=== PATIENT | female | born 1940 | race Caucasian/White ===

== ENCOUNTER 2016-10-09 09:11 | Inpatient (IN) | payer MEDICARE, BC ==
--- NOTE | ~2016-10-09 | DS ---
Discharge Summary [facility] [address] [place]. [address] NAME: OZIEL CHAUDHRY : 38 STATUS : DIS IN PAT#: [id number] AGE: 76 ADM/REG DATE : 10/11/16 MR#: [id number] REPORT SERV DATE: 10/14/16 DICTATED BY: JR. NEGRETE WILLIAM JOHN DATE: 10/14/16 REPORT STATUS : Draft TRANSCRIBED BY: MODL DATE: 10/14/16 ADMISSION DATE: 10/11/2016 DISCHARGE DATE: 10/14/2016 DISCHARGE DIAGNOSES: Include: 1. Dysphagia with normal structure per ENT and normal neuromuscular control per Speech and Language Pathology. 2. Viral upper respiratory infection. 3. Hypokalemia. 4. Essential hypertension. 5. Coronary artery disease with stent. 6. Rash, which has resolved. 7. Obesity with body mass index of 34.4. OPERATIONS, PROCEDURES, AND TREATMENTS: Include: 1. Chest x-ray done 10/09/2016 which showed clear lungs with mild cardiomegaly. 2. Swallow evaluation which showed some vallecular pooling and vallecular and piriformis residue with pudding by teaspoon with vallecular pooling that returns to the mouth. The patient was unable to produce a swallow initially. 3. Repeat evaluation by Speech and Language Pathology showed the patient was able to swallow part of the bolus of pudding thick liquids and the rest of the bolus had to be spit out. The patient was safe to swallow but appeared to be afraid of "choking" making it difficult to eat a whole lot. 4. Ear, Nose, and Throat consultation by Dr. Li, who felt she had an acute upper respiratory infection suspected to be viral, also with odynophagia recommended. Speech evaluation as above. DISCHARGE MEDICATIONS: Included: 1. Aspirin 81 mg orally daily. 2. Plavix 75 mg orally daily. 3. Imdur 60 mg orally daily. 4. Cozaar 50 mg orally twice a day. 5. Bystolic 5 mg orally at bedtime. 6. Potassium 10 mEq three times a day. 7. Tramadol 50 mg twice a day. 8. Stool softener. 9. Nitroglycerin 0.4 mg sublingually as needed. HOSPITAL COURSE: The patient is a 76-year-old white female, presented to the emergency room on 10/09/2016 because of an inability to swallow. She reported that the symptoms had started the prior day she was having upper respiratory infection for five to six days. She had a very similar episode in June, by which time, she had an extensive workup for neurologic or structural causes, all of which was negative at that time. The patient's dysphagia spontaneously resolved in June. For exact details of the admission history, physical, and presenting data, please see Dr. Levine's admission history and physical. Discharge Summary [address] [address] NAME: OZIEL CHAUDHRY : 39 STATUS : DIS IN PAT#: [id number] AGE: 76 ADM/REG DATE : 10/11/16 MR#: [id number] REPORT SERV DATE: 10/14/16 DICTATED BY: JR. NEGRETE WILLIAM JOHN DATE: 10/14/16 REPORT STATUS : Draft TRANSCRIBED BY: NICOLE DATE: 10/14/16 The patient was admitted to the Clinical Decision Unit initially. She was seen in consultation by ENT who performed an endoscopy and felt there was no structural cause to her trouble with swallowing. Recommended speech eval for neuromuscular causes. The patient was subsequently evaluated by speech and language pathology. Initially, she was unwilling or unable to swallow any of the barium. Reevaluation showed that she was able to swallow some of the barium with normal neuromuscular control but a fear of "choking." The patient was maintained on IV fluids and blood pressure medications were changed to IV formulation. I discussed with the patient the need to establish enteric access on 10/13/2016. We had planned to put a Dobhoff tube under radiology guidance with subsequent plan for PEG tube should the patient continue to be unable to swallow. By 10/14/2016 when I entered the room, the patient was eating spontaneously without choking and without difficulty and wanted to go home. She did not have a Dobhoff tube in place. We discussed possible etiologies. The patient feels and I agree that this is an anxiety issue. She is not anxious at baseline. However, when she gets sick, she has a fear of coughing and therefore is fearful of eating. She felt comfortable with discharge at this time. Regarding the patient's upper respiratory infection, she was placed initially on Rocephin by Dr. Levine, developed a rash. Antibiotics were discontinued. The rash resolved. This seems likely to have been a viral upper respiratory infection as all symptoms are currently resolved with no further antibiotics. The remainder of the patient's health problems remained stable and were not addressed. The patient would be discharged home and will follow up with Dr. Elder. I would recommend at this time a soft diet with supplements of Ensure shakes and advancing the diet as tolerated. The patient's family are all comfortable. She will be discharged home. DIET: Soft. ACTIVITY: As tolerated. Follow up with Dr. Elder. This discharge took 33 minutes for patient encounter, coordination of care, and documentation. WJF/MODL Alex Negrete Jr, MD / [id number] CC: Alex Negrete Jr, MD Renee Harless, M.D.
--- NOTE | ~2016-10-09 | HP ---
History And Physical [place] [address] [facility] [place]. [address] NAME: OZIEL CHAUDHRY : 38 STATUS : REG ER PAT#: [id number] AGE: 76 ADM/REG DATE : 10/09/16 MR#: [id number] REPORT SERV DATE: 10/09/16 DICTATED BY: PEDRO FANG DATE: 10/09/16 REPORT STATUS : Draft TRANSCRIBED BY: MODL DATE: 10/09/16 DATE OF ADMISSION: 10/09/2016 HISTORY OF PRESENT ILLNESS: The patient is a very pleasant 76-year-old female, who presented to [facility] because of dysphagia and inability to swallow. She reported that the symptoms started yesterday and she said that she is having upper respiratory infection for approximately five to six days and last time in end of June, she had the same symptoms of upper respiratory infection and she has a postnasal drip, and she had similar symptoms, and she was hospitalized at this hospital. She spent there six days. The patient was unable to eat at diet. At that time, she under underwent upper GI endoscopy, EGD, and she was found to have esophagitis, but no evidence of any esophageal stricture. She had also MRI and extensive neurological workup on multiple swallowing study. Everything came back negative. It looks like these abnormal swallowing was related to upper respiratory infection and postnasal drip. The patient said that she has a fear of swallowing and they gave her water to swallow in the emergency room. She was unable to swallow it, was having some spasms. The patient denies any chest pain, no shortness of breath. No abdominal pain. No fever. No rash. No headaches. REVIEW OF SYSTEMS: All fourteen-point review of systems done and negative except what is stated in the history of present illness. PAST MEDICAL HISTORY: Known for hypertension, history of coronary artery disease with a history of stent placement, and obesity. PAST SURGICAL HISTORY: Includes hysterectomy, cholecystectomy, knee and back surgeries. SOCIAL HISTORY: Nonsmoker, nondrinker. No recreational drug use. . Has at the bedside. ALLERGIES: SHE IS ALLERGIC TO NONSTEROIDAL ANTIINFLAMMATORIES, PENICILLIN, MORPHINE, HYDROCODONE, CIPROFLOXACIN, LEVAQUIN, ZOLEDRONIC ACID. HAD ADVERSE REACTION TO FLU SHOT. FAMILY HISTORY: Mother was a long liver, of old age. Father had leukemia and in his 40s. HOME MEDICATIONS: Include Tylenol 1000 mg a day, Plavix 75 mg daily, aspirin 81 mg daily, doxycycline 100 mg p.o. b.i.d., was given for 10 days by [facility], isosorbide mononitrate 60 mg a day, losartan 50 mg p.o. twice a day, Bystolic 5 mg daily, nitroglycerin 0.4 as needed for chest pain, potassium chloride 10 mg p.o. t.i.d., tramadol 50 mg b.i.d., Ultram 50 mg daily p.r.n. for pain, and stool softener daily. PHYSICAL EXAMINATION: GENERAL: Well-nourished, well-developed female, not in acute distress. Resting quietly. VITAL SIGNS: Blood pressure 146/67, temperature 98.7, heart rate 72, respiratory rate 20, oxygen saturation 96% on room air. History And Physical [address] [address] NAME: OZIEL CHAUDHRY : 38 STATUS : REG ER PAT#: [id number] AGE: 76 ADM/REG DATE : 10/09/16 MR#: [id number] REPORT SERV DATE: 10/09/16 DICTATED BY: PEDRO FANG DATE: 10/09/16 REPORT STATUS : Draft TRANSCRIBED BY: NICOLE DATE: 10/09/16 HEENT: Head atraumatic, normocephalic. Conjunctivae clear. Pupils are equal and reactive to light and accommodation. Extraocular muscles are intact. NECK: Supple. Trachea is midline. No supraclavicular or cervical lymphadenopathy. Oropharynx is clear and moist. There is mild erythema on the posterior wall of oropharynx, but very minimal. LUNGS: Clear. Trachea is midline. No supraclavicular or cervical lymphadenopathy. Lungs are clear with normal respiratory effort. CARDIOVASCULAR SYSTEM: Regular rate and rhythm. Ijhzc-[id number] impulse not displaced. ABDOMEN: Soft, nontender, nondistended. Positive normoactive bowel sounds. EXTREMITIES: No clubbing, cyanosis, or edema. Skin: Normal color and turgor. NEUROLOGIC: Awake, alert, and oriented to time, place, and person. Muscle strength 5/5 bilaterally in the upper and lower extremities. LABORATORY RESULTS: Sodium 144, potassium 3.4, chloride 106, carbon dioxide 28, BUN 13, creatinine 0.67, blood sugar 124. Troponin less than 0.02. White count 5.7, hemoglobin 14.2, hematocrit 42.1, and platelet count 214. PT 14.6, INR 1.2. Chest x-ray is clear. EKG showed right bundle-branch block with a rate of 76, otherwise normal EKG. ASSESSMENT AND PLAN: 1. This is a very pleasant 76-year-old female who presented with symptoms of dysphagia, which was triggered by upper respiratory infection. She had similar symptoms in last June. She had multiple studies done during previous hospitalization and the conclusion was that this is related to postnasal drip and upper respiratory infection. We are going to admit the patient to the hospital and we will watch her. We will give her IV fluid hydration. Since she is unable to swallow, we will give her a trial to swallow clear liquid diet, as well as we will ask Ear, Nose, and Throat to evaluate her upper pharyngeal area for possible swelling and difficulty swallowing. She had multiple swallowing studies and also MRI of the head and extensive workup last admission and nothing was found and she had similar symptoms which are triggered by upper respiratory infection. Also, we will monitor her closely. 2. Regarding her hypokalemia, we will start her on IV fluids with potassium to replace her hypokalemia and to replace her fluid deficit in case if she will not be able to swallow today and tomorrow. 3. Her blood pressure is in the normal range. 4. Her coronary artery disease is asymptomatic. I will follow up on this patient tomorrow morning. Everything was discussed with patient and family. MG/NICOLE Pedro Fang M.D. History And Physical [address] [address] NAME: OZIEL CHAUDHRY : 38 STATUS : REG ER PAT#: [id number] AGE: 76 ADM/REG DATE : 10/09/16 MR#: [id number] REPORT SERV DATE: 10/09/16 DICTATED BY: PEDRO FANG DATE: 10/09/16 REPORT STATUS : Draft TRANSCRIBED BY: NICOLE DATE: 10/09/16 / [id number] CC: Carley Elder M.D.
[~2016-10-09 09:11] MED LIST: ASAB PO; BYSTOLIC5 MG PO; CEFZIL500 MG PO; COZ50 PO; FLONASE NAS; HALF81 PO; IMDUR60 PO; KLOR-CON 1010 MEQ PO; MEDROLPAK4 PO; PLAVIX PO; PROTONIX PO; THERGRANM PO; ULTRAM50 PO; Z-PAK PO
[2016-10-09 10:22] LABS: BASOPHILS 0.3 %; BASOPHILS ABSOLUTE 0.02 10/3/uL (0.0-0.16); EOSINOPHILS 0.2 %; EOSINOPHILS ABSOLUTE 0.01 10/3/uL (0.0-0.53); ER CBC TAT 0 Hrs 12 Mins; HEMOGLOBIN 14.2 g/dL (12.0-16.0); IMMATURE GRANULOCYTES 0.7 %; IMMATURE GRANULOCYTES ABSOLUTE 0.04 10/3/uL (0.0-0.11); INTERNATIONAL NORMAL RATI 1.2 UNITS (-); LYMPHOCYTES 19.3 %; LYMPHOCYTES ABSOLUTE 1.11 10/3/uL (0.67-4.30); MEAN CORPUS HGB CONC 33.7 g/dL (32.0-36.0); MEAN CORPUSCULAR HEMOGLOB 32.1 pg (26.0-34.0); MEAN CORPUSCULAR VOLUME 95.2 fL (80-100); MEAN PLATELET VOLUME 11.5 fL (9.2-13.0); MONOCYTES ABSOLUTE 0.86 10/3/uL (0.21-1.20); NEUTROPHILS 64.5 %; PLATELET COUNT 214 10/3/uL (150-400); PROTIME (NOT ORD) 14.6 SEC (12.0-14.5); RBC DISTRIBUTION WIDTH 13.2 % (12.0-16.0); RED CELL COUNT 4.42 10/6/uL (4.0-5.6); WHITE BLOOD CELLS 5.7 10/3/uL (4.5-10.5)
[2016-10-09 10:23] LABS: HEMATOCRIT 42.1 % (36.0-48.0); MANUAL DIFF NO %
[2016-10-09 10:32] LABS: A/G RATIO 1.2 (0.7-1.9); ALBUMIN 4.1 G/DL (3.5-5.0); ALKALINE PHOSPHATASE 86 U/L (45-117); BUN (BLOOD UREA NITROGEN) 13 MG/DL (6-23); CALCIUM, SERUM 9.2 MG/DL (8.5-10.4); CHLORIDE, SERUM 106 MMOL/L (96-112); CO2 (CARBON DIOXIDE) 28 MMOL/L (24-34); CREATININE 0.67 MG/DL (0.55-1.02); GFR AFRICAN AMERICAN 98 ML/MIN (>=60); GFR NON AFRICAN AMERICAN 85 ML/MIN (>=60); GLOBULIN 3.4 G/DL (2.5-4.1); GLUCOSE, SERUM 124 MG/DL (60-99); POTASSIUM, SERUM 3.4 MMOL/L (3.5-5.3); SGOT(AST) 19 U/L (5-40); SGPT(ALT) 22 U/L (5-65); SODIUM, SERUM 144 MMOL/L (135-148); TOTAL BILIRUBIN 0.8 MG/DL (0-1.2); TOTAL PROTEIN 7.5 G/DL (6.0-8.5); TROPONIN I <0.02 NG/ML (<0.05)
[2016-10-09] MEDS ORDERED: PLAVIX PO (10:58)
[2016-10-09] MEDS ORDERED: ASAB PO (10:58)
[2016-10-09] MEDS ORDERED: IMDUR60 PO (10:58)
[2016-10-09] MEDS ORDERED: COZ50 PO (10:58)
[2016-10-09] MEDS ORDERED: BYSTOLIC5 MG PO (10:59)
[2016-10-09] MEDS ORDERED: KLOR-CON 1010 MEQ PO (10:59)
[2016-10-09] MEDS ORDERED: ULTRAM50 PO ×2 (10:59)
[2016-10-09] MEDS ORDERED: ACET500CAP PO (11:00)
[2016-10-09] MEDS ORDERED: STOOL SOFTENER OTC PO (11:01)
[2016-10-09] MEDS ORDERED: MONODOX100 MG PO (11:03)
[2016-10-09] MEDS ORDERED: NITROSTAT0.4 MG SL (11:03)
[2016-10-09 11:05] LABS: PLATELET ESTIMATE ADQ (ADEQUATE)
[2016-10-10 04:36] LABS: BUN (BLOOD UREA NITROGEN) 14 MG/DL (6-23); CALCIUM, SERUM 8.8 MG/DL (8.5-10.4); CHLORIDE, SERUM 107 MMOL/L (96-112); CO2 (CARBON DIOXIDE) 27 MMOL/L (24-34); CREATININE 0.49 MG/DL (0.55-1.02); GFR AFRICAN AMERICAN 109 ML/MIN (>=60); GFR NON AFRICAN AMERICAN 94 ML/MIN (>=60); GLUCOSE, SERUM 104 MG/DL (60-99); POTASSIUM, SERUM 3.9 MMOL/L (3.5-5.3); SODIUM, SERUM 144 MMOL/L (135-148)
[2016-10-11 03:56] LABS: BUN (BLOOD UREA NITROGEN) 13 MG/DL (6-23); CALCIUM, SERUM 8.5 MG/DL (8.5-10.4); CHLORIDE, SERUM 106 MMOL/L (96-112); CO2 (CARBON DIOXIDE) 25 MMOL/L (24-34); CREATININE 0.53 MG/DL (0.55-1.02); GFR AFRICAN AMERICAN 106 ML/MIN (>=60); GFR NON AFRICAN AMERICAN 92 ML/MIN (>=60); GLUCOSE, SERUM 90 MG/DL (60-99); POTASSIUM, SERUM 4.1 MMOL/L (3.5-5.3); SODIUM, SERUM 141 MMOL/L (135-148)
[2016-10-11 16:31] LABS: PROCALCITONIN <0.05 ng/mL (<0.5)
[2016-10-12 07:33] LABS: BASOPHILS 0.4 %; BASOPHILS ABSOLUTE 0.02 10/3/uL (0.0-0.16); EOSINOPHILS 0 %; HEMOGLOBIN 14.1 g/dL (12.0-16.0); IMMATURE GRANULOCYTES ABSOLUTE 0.05 10/3/uL (0.0-0.11); LYMPHOCYTES 18.1 %; LYMPHOCYTES ABSOLUTE 0.92 10/3/uL (0.67-4.30); MEAN CORPUS HGB CONC 33.6 g/dL (32.0-36.0); MEAN CORPUSCULAR HEMOGLOB 31.7 pg (26.0-34.0); MEAN CORPUSCULAR VOLUME 94.4 fL (80-100); MONOCYTES 8.8 %; MONOCYTES ABSOLUTE 0.45 10/3/uL (0.21-1.20); NEUTROPHILS 71.7 %; NEUTROPHILS ABSOLUTE 3.65 10/3/uL (2.02-8.40); RBC DISTRIBUTION WIDTH 13.3 % (12.0-16.0); RED CELL COUNT 4.45 10/6/uL (4.0-5.6); WHITE BLOOD CELLS 5.1 10/3/uL (4.5-10.5)
[2016-10-12 07:34] LABS: MANUAL DIFF NO %; PLATELET COUNT 149 10/3/uL (150-400)
[2016-10-12 07:45] LABS: BUN (BLOOD UREA NITROGEN) 10 MG/DL (6-23); CALCIUM, SERUM 8.1 MG/DL (8.5-10.4); CHLORIDE, SERUM 102 MMOL/L (96-112); CO2 (CARBON DIOXIDE) 22 MMOL/L (24-34); CREATININE 0.38 MG/DL (0.55-1.02); GFR AFRICAN AMERICAN 118 ML/MIN (>=60); GFR NON AFRICAN AMERICAN 102 ML/MIN (>=60); GLUCOSE, SERUM 94 MG/DL (60-99); POTASSIUM, SERUM 3.6 MMOL/L (3.5-5.3); SODIUM, SERUM 139 MMOL/L (135-148)
[2016-10-13 07:08] LABS: BUN (BLOOD UREA NITROGEN) 9 MG/DL (6-23); CALCIUM, SERUM 8.3 MG/DL (8.5-10.4); CHLORIDE, SERUM 106 MMOL/L (96-112); CO2 (CARBON DIOXIDE) 20 MMOL/L (24-34); CREATININE 0.41 MG/DL (0.55-1.02); GFR AFRICAN AMERICAN 115 ML/MIN (>=60); GFR NON AFRICAN AMERICAN 100 ML/MIN (>=60); GLUCOSE, SERUM 92 MG/DL (60-99); POTASSIUM, SERUM 3.6 MMOL/L (3.5-5.3); SODIUM, SERUM 139 MMOL/L (135-148)
[2016-10-14 04:59] LABS: BUN (BLOOD UREA NITROGEN) 9 MG/DL (6-23); CALCIUM, SERUM 8.4 MG/DL (8.5-10.4); CHLORIDE, SERUM 104 MMOL/L (96-112); CO2 (CARBON DIOXIDE) 20 MMOL/L (24-34); CREATININE 0.37 MG/DL (0.55-1.02); GFR AFRICAN AMERICAN 119 ML/MIN (>=60); GFR NON AFRICAN AMERICAN 103 ML/MIN (>=60); SODIUM, SERUM 140 MMOL/L (135-148)
[2016-10-14 05:00] LABS: GLUCOSE, SERUM 66 MG/DL (60-99)
== END 2016-10-14 15:51 | disposition home or self-care (01) | DRG 153 ==
LOC: ER 09:11 → CDU1 12:50 → CDU2 23:44 → 5NO 10-12 03:44
PROVIDERS: Emergency Medicine; Hospitalist; Internal Medicine
DX: J06.9 Acute upper respiratory infection, unspecified (principal); R13.10 Dysphagia, unspecified; I45.10 Unspecified right bundle-branch block; I10 Essential (primary) hypertension; E87.6 Hypokalemia; I25.10 Atherosclerotic heart disease of native coronary artery without angina pectoris; Z88.0 Allergy status to penicillin; Z88.5 Allergy status to narcotic agent; Z88.1 Allergy status to other antibiotic agents; Z88.8 Allergy status to other drugs, medicaments and biological substances; Z79.82 Long term (current) use of aspirin; Z79.02 Long term (current) use of antithrombotics/antiplatelets; Z79.899 Other long term (current) drug therapy; E66.9 Obesity, unspecified; Z68.36 Body mass index [BMI] 36.0-36.9, adult; F41.9 Anxiety disorder, unspecified
CPT/HCPCS: 71010; 74230; 80048; 80053; 82962; 83735; 84145; 84484; 85025; 85610; 85730; 87040; 92611-GN; 93005; 94640; 96374; 97161-GP; 99285; A9270-GY; G8978-CI-GP; G8979-CH-GP; G8996-CJ-GN; G8997-CJ-GN; G8998-CJ-GN; J0360; J2930